=== PATIENT | female | born 2005 | race African-American/Black ===

== ENCOUNTER 2023-03-19 00:10 | Emergency (ER) | payer OTHER, MEDICAID, SELFPAY ==
[2023-03-19] VITALS (11 sets, daily range): BP systolic 124–139; BP diastolic 70–84; PULSE 100–103; RESP 18–19; TEMP 36.7; O2SAT 98–100
[2023-03-19 00:55] LABS: Basophils Absolute Auto 0.1 K/mm3 (0.0-0.1); Eosinophils Absolute Auto 0.3 K/mm3 (0-0.3); Eosinophils Percent Auto 2.4 % (0-4.4); Hematocrit 39.4 % (37.0-47.0); Hemoglobin 12.9 g/dL (12.0-15.0); Immature Granulocyte Absolute 0.02 K/mm3 (0.00-0.031); Immature Granulocyte Percent A 0.2 % (0-0.5); Lymphocytes Absolute Auto 3.34 K/mm3 (0.9-3.2); Mean Corpuscular HGB Conc 32.7 g/dl (32-36); Mean Corpuscular Hemoglobin 29.5 pg (26-34); Mean Corpuscular Volume 90.2 fl (80-100); Mean Platelet Volume 9.7 fl (7.4-10.4); Monocytes Absolute Auto 0.5 K/mm3 (0.1-0.6); Monocytes Percent Auto 4.8 % (2.6-8.5); Neutrophils Absolute Auto 6.2 K/mm3 (1.3-6.7); Neutrophils Percent Auto 59.6 % (45.5-73.1); Platelet Count Result 323 k/mm3 (150-375); Red Blood Count 4.37 M/mm3 (4.2-5.4); Red Cell Distribution Width 14.1 % (11.5-14.5); White Blood Count 10.4 K/mm3 (4.5-10.0)
[2023-03-19 01:01] LABS: Appearance Urine Clear (Clear); Bacteria Urine None Seen /hpf; Bilirubin Urine Negative (Negative); Blood Urine 3+ (Negative); Color Urine Yellow (Yellow); Glucose Urine UA Negative (Negative); Ketones Urine Negative (Negative); Leukocyte Esterase Ur 1+ LEU/UL (Negative); Nitrate Urine Negative (Negative); Non Pathogenic Casts 0-2; Protein Urine Negative (Negative); RBC Urine 0-2 /hpf (0-2); Specific Grav Ur 1.006 (1.001-1.035); Squamous Epithelial Cell Urine Moderate /hpf (Few); Urobilinogen Urine 0.2 mg/dL (<2.0)
[2023-03-19 01:06] LABS: Add Urine Microscopic? YES
[2023-03-19 01:13] LABS: Potassium 3.2 mmol/L (3.4-5.0)
[2023-03-19 01:17] LABS: Alanine Aminotransferase 15 U/L (6-35); Albumin Level 4.5 g/dL (3.7-5.6); Alkaline Phosphatase 70 U/L (45-116); Anion Gap 9 mmol/L (8-16); Aspartate Amino Transferase 21 U/L (14-36); Bilirubin,Total 0.4 mg/dL (0.2-1.3); Blood Urea Nitrogen 6 mg/dL (8-21); Calcium 9.2 mg/dL (8.9-10.7); Carbon Dioxide 26 mmol/L (22-30); Chloride 106 mmol/L (98-107); Estimated CRCL calculation 79 ml/min; Estimated Glomerular Filt Rate > 60; Glucose 100 mg/dL (65-110); Lipase 46 U/L (23-300); Sodium 141 mmol/L (134-143)
--- NOTE | 2023-03-19 06:14 | ED.GENADULT ---
HPI - General Adult General Chief complaint: Nausea/Vomiting/Diarrhea Stated complaint: n/v, one episode of bright red vomit Time Seen by Provider: 03/19/23 06:04 History of Present Illness HPI narrative: Patient presents the emergency department with concern for being dehydrated. She has felt off the past couple days. Denies fevers and chills. Has been nauseous in the evenings every night. Today she had an episode of coughing with posttussive emesis. She noticed some blood in the emesis so came directly to the emergency department . Related Data Allergies Allergy/AdvReac Type Severity Reaction Status Date / Time No Known Allergies Allergy Verified 03/19/23 00:11 Review of Systems Review of Systems: Review of systems negative except what is documented in the HPI Exam Narrative: GENERAL: Well-appearing, well-nourished, and in no acute distress. HEAD: Normocephalic, atraumatic. EYES: PERRLA and EOMI. ENT: Nares clear, no rhinorrhea or epistaxis. Mucous membranes moist. NECK: Supple. CHEST: Clear to auscultation. No respiratory distress. HEART: Regular rate and rhythm. ABDOMEN: Soft, nontender, nondistended. EXTREMITIES: Normal range of motion. No edema. SKIN: Warm, dry, no rash. NEURO: No focal deficits. Alert and oriented x3. PSYCH: Normal mood and affect. Course Course Emergency Course: Vital signs stable except for very mild tachycardia. Labs unremarkable with COVID swab pending. Possibly mild urinary tract infection. Due to her symptoms we will treat. She is currently asymptomatic Vital Signs Vital signs: Vital Signs Temperature 36.7 C 03/19/23 00:14 Pulse Rate 102 H 03/19/23 00:14 Respiratory Rate 19 03/19/23 00:14 Blood Pressure 133/81 03/19/23 00:14 Pulse Oximetry 100 03/19/23 00:14 Oxygen Delivery Room Air 03/19/23 00:14 Temperature 36.7 C 03/19/23 00:14 Pulse Rate 103 H 03/19/23 03:53 Respiratory Rate 19 03/19/23 00:14 Blood Pressure 124/70 03/19/23 05:31 Pulse Oximetry 98 03/19/23 05:31 Oxygen Delivery Room Air 03/19/23 00:14 Medical Decision Making Vital Signs Vital Signs: Vital Signs Temperature 36.7 C 03/19/23 00:14 Pulse Rate 102 H 03/19/23 00:14 Respiratory Rate 19 03/19/23 00:14 Blood Pressure 133/81 03/19/23 00:14 Pulse Oximetry 100 03/19/23 00:14 Oxygen Delivery Room Air 03/19/23 00:14 Temperature 36.7 C 03/19/23 00:14 Pulse Rate 103 H 03/19/23 03:53 Respiratory Rate 19 03/19/23 00:14 Blood Pressure 124/70 03/19/23 05:31 Pulse Oximetry 98 03/19/23 05:31 Oxygen Delivery Room Air 03/19/23 00:14 Lab Data 03/19/23 00:41 03/19/23 00:41 Labs: Lab Results 03/19/23 03/19/23 Range/Units 00:41 05:42 WBC 10.4 H (4.5-10.0) K/mm3 RBC 4.37 (4.2-5.4) M/mm3 Hgb 12.9 (12.0-15.0) g/dL Hct 39.4 (37.0-47.0) % MCV 90.2 (80-100) fl MCH 29.5 (26-34) pg MCHC 32.7 (32-36) g/dl RDW 14.1 (11.5-14.5) % Plt Count 323 (150-375) k/mm3 MPV 9.7 (7.4-10.4) fl Immature Gran % (Auto) 0.2 (0-0.5) % Neut % (Auto) 59.6 (45.5-73.1) % Lymph % (Auto) 32.0 (18.3-44.2) % Lewis % (Auto) 4.8 (2.6-8.5) % Eos % (Auto) 2.4 (0-4.4) % Baso % (Auto) 1.0 (0.2-1.2) % Lymph # (Auto) 3.34 H (0.9-3.2) K/mm3 Lewis # (Auto) 0.5 (0.1-0.6) K/mm3 Eos # (Auto) 0.3 (0-0.3) K/mm3 Baso # (Auto) 0.1 (0.0-0.1) K/mm3 Abs Immat Gran (auto) 0.02 (0.00-0.031) K/mm3 Absolute Neuts (auto) 6.2 (1.3-6.7) K/mm3 Absolute Nucleated RBC 0.0 (0.0-0.012) K/mm3 Nucleated RBC % 0.0 (0.0-0.2) % Sodium 141 (134-143) mmol/L Potassium 3.2 L (3.4-5.0) mmol/L Chloride 106 (98-107) mmol/L Carbon Dioxide 26 (22-30) mmol/L Anion Gap 9 (8-16) mmol/L BUN 6 L (8-21) mg/dL Creatinine 0.90 (0.7-1.0) mg/dL Estim Creat Clear Calc 79 ml/min Estimated GFR > 60 (59 - ) Glucose 100 (65-110) mg/dL C
[2023-03-19 06:26] LABS: Influenza A QL RT-PCR Negative (Negative); Influenza B QL RT-PCR Negative (Negative); SARS-CoV-2 RNA PCR Negative (Negative)
== END 2023-03-19 06:44 | disposition home or self-care (01) ==
PROVIDERS: Emergency Provider Emergency Medicine
DX: N39.0 Urinary tract infection, site not specified (principal); E86.0 Dehydration; R11.0 Nausea
CPT/HCPCS: 36415; 80053; 81001; 81025; 83690; 85025; 87086; 87636; 99283